=== PATIENT | male | born 1995 | race Caucasian/White ===

== ENCOUNTER 2020-05-23 10:16 | Emergency (ER) | payer BC ==
[2020-05-23] MEDS ORDERED: NA CHLORIDE 0.9% 1,000 ML ONE (11:15)
[2020-05-23 11:31] LABS: Urine Blood NEGATIVE (NEG); Urine Glucose NEGATIVE (NEG); Urine Protein NEGATIVE (NEG); Urine Specific Gravity >1.030 (1.005-1.030)
[2020-05-23 11:35] LABS: Absolute Lymphocytes (CBC) 1.5 K/uL (0.7-4.9); Basophils % 0.6 % (0-1.3); Hematocrit 46.8 % (39.6-49.0); Lymphocytes % 18.8 % (15.3-44.8); MPV 9.3 fL (7.6-11.3); RBC Red Blood Cell Count 5.43 M/uL (4.33-5.43)
--- NOTE | 2020-05-23 11:35 | RAD REPORT ---
EXAM DESCRIPTION: RAD - Knee Right 3 View - 05/23/2020 10:50 am CLINICAL HISTORY: PAIN COMPARISON: No comparisons FINDINGS: No fracture, dislocation or periosteal reaction.No joint effusion seen. No joint space kaveh rowing. No foreign body or other soft tissue abnormality. IMPRESSION: Negative right knee. Clinical concerns for internal derangement or occult bony injury could be further assessed with MR im aging.
[2020-05-23 11:39] LABS: BUN Blood Urea Nitrogen 13 mg/dL (7-18); Bicarbonate 29 mmol/L (21-32); Glucose Level 159 mg/dL (74-106); Potassium 4.4 mmol/L (3.5-5.1); Sodium Level 139 mmol/L (136-145)
--- NOTE | 2020-05-23 11:55 | EDPHYS ---
Physician Documentation [facility] Name: Harley Yadav Age: 24 yrs Sex: Male : 1995 Arrival Date: 05/23/2020 Time: 10:19 Bed 13 Private MD: Evaristo Peterson T ED Physician Cecilio Willis HPI: 05/23 13:45 This 24 yrs old Male presents to ER via Ambulatory with complaints of Fall kb Injury, Knee Injury. 13:45 Details of fall: The patient fell from an upright position, while walking. Onset: The kb symptoms/episode began/occurred last night. Associated injuries: The patient sustained right knee, painful injury. Severity of symptoms: At their worst the symptoms were moderate, in the emergency department the symptoms are unchanged. The patient has not experienced similar symptoms in the past. The patient has not recently seen a physician. Pt reports he was walking to the kitchen last night and passed out. States he woke up with pain to right knee. Reports he has been having lightheadedness upon standing and walking for about a week. . Historical: - Allergies: 10:45 PENICILLINS; bp - Home Meds: 10:45 Metformin Oral [Active]; losartan oral oral [Active]; atorvastatin oral oral [Active]; bp - PMHx: 10:45 Diabetes - NIDDM; Hypertension; Hyperlipidemia; Gout; bp - Immunization history:: Adult Immunizations up to date. - Social history:: Smoking status: Patient denies any tobacco usage or history of. ROS: 13:22 Constitutional: Negative for fever, chills, and weight loss, Cardiovascular: Negative kb for chest pain, palpitations, and edema, Respiratory: Negative for shortness of breath, cough, wheezing, and pleuritic chest pain, Abdomen/GI: Negative for abdominal pain, nausea, vomiting, diarrhea, and constipation, Back: Negative for injury and pain, Skin: Negative for injury, rash, and discoloration. 13:22 MS/extremity: Positive for pain, tenderness, of the right knee. 13:22 Neuro: Positive for syncope. Exam: 13:44 Constitutional: This is a well developed, well nourished patient who is awake, alert, kb and in no acute distress. Head/Face: Normocephalic, atraumatic. Chest/axilla: Normal chest wall appearance and motion. Nontender with no deformity. No lesions are appreciated. Cardiovascular: Regular rate and rhythm with a normal S1 and S2. No gallops, murmurs, or rubs. Normal PMI, no JVD. No pulse deficits. Respiratory: Lungs have equal breath sounds bilaterally, clear to auscultation and percussion. No rales, rhonchi or wheezes noted. No increased work of breathing, no retractions or nasal flaring. Abdomen/GI: Soft, non-tender, with normal bowel sounds. No distension or tympany. No guarding or rebound. No evidence of tenderness throughout. Skin: Warm, dry with normal turgor. Normal color with no rashes, no lesions, and no evidence of cellulitis. Neuro: Awake and alert, GCS 15, oriented to person, place, time, and situation. Cranial nerves II-XII grossly intact. Motor strength 5/5 in all extremities. Sensory grossly intact. Cerebellar exam normal. Normal gait. 13:44 Musculoskeletal/extremity: Extremities: grossly normal except: noted in the right knee: decreased ROM, pain, tenderness, ROM: limited active range of motion due to pain, in the right knee, Circulation is intact in all extremities. Sensation intact. Weight bearing: able to fully bear weight. Vital Signs: 10:46 BP 108 / 74; Pulse 97; Resp 16; Temp 97.8; Pulse Ox 100% ; bp 10:47 BP 108 / 74 Supine; Pulse 94; bp 10:49 BP 115 / 83 Sitting; Pulse 105; bp 10:51 BP 103 / 40 Standing; Pulse 141; bp 11:36 BP 110 / 66; Pulse 87; Resp 16; Pulse Ox 97% ; bp 12:32 BP 100 / 74; Pulse 89; Resp 16; Pulse Ox 100% ; bp MDM: 10:20 Patient medically screened. kb 10:30 Data reviewed: vital signs, nurses notes. Data interpreted: Pulse oximetry: on room air kb is 99 %. Interpretation: normal. 11:54 Counseling: I had a detailed discussion with the patient and/or guardian regarding: the kb historical points, exam findings, and any diagnostic results supporting the discharge/admit diagnosis, lab results, radiology results, the need for outpatient follow up, a family practitioner, to return to the emergency department if symptoms worsen or persist or if there are any questions or concerns that arise at home. 05/23 10:55 Order name: CBC with Diff; Complete Time: 11:36 kb 05/23 10:55 Order name: Basic Metabolic Panel; Complete Time: 11:40 kb 05/23 10:29 Order name: Knee Right 3 View XRAY; Complete Time: 11:40 kb 05/23 10:29 Order name: Orthostatics; Complete Time: 11:06 kb 05/23 11:07 Order name: Urine Dipstick--Ancillary (enter results); Complete Time: 11:36 bd 05/23 10:29 Order name: Urine Dipstick-Ancillary (obtain specimen); Complete Time: 11:06 kb 05/23 10:55 Order name: IV Start; Complete Time: 11:15 kb 05/23 11:55 Order name: Krish Wrap; Complete Time: 12:32 kb Administered Medications: 11:10 Drug: NS 0.9% 1000 ml Route: IV; Rate: 1000 ml; Site: right antecubital; bp 12:35 Follow up: IV Status: Completed infusion; IV Intake: 1000ml bp Disposition: 17:32 Co-signature as Attending Physician, Cecilio Willis MD I agree with the assessment and kdr plan of care. Disposition: 05/23/20 11:55 Discharged to Home. Impression: Pain in right knee, Syncope and collapse, Volume depletion. - Condition is Stable. - Discharge Instructions: Syncope, Liyn-do-Pupk, Dehydration, Adult, [id number], Knee Pain, [id number]. - Medication Reconciliation Form, Thank You Letter, Antibiotic Education, Prescription Opioid Use form. - Follow up: Emergency Department; When: As needed; Reason: Worsening of condition. Follow up: Private Physician; When: 2 - 3 days; Reason: Recheck today's complaints, Continuance of care, Re-evaluation by your physician. Signatures: Dispatcher [employer] EDHillary Baig, APPAREL MANAGER-C APPAREL MANAGER-Cecilio Simmons MD MD kdr Peltier, Brian, RN RN bp Corrections: (The following items were deleted from the chart) 12:36 11:55 05/23/2020 11:55 Discharged to Home. Impression: Pain in right knee; Syncope and bp collapse; Volume depletion. Condition is Stable. Forms are Medication Reconciliation Form, Thank You Letter, Antibiotic Education, Prescription Opioid Use. Follow up: Emergency Department; When: As needed; Reason: Worsening of condition. Follow up: Private Physician; When: 2 - 3 days; Reason: Recheck today's complaints, Continuance of care, Re-evaluation by your physician. kb
--- NOTE | 2020-05-23 11:55 | ER ---
Nurse's Notes [facility] Name: Harley Yadav Age: 24 yrs Sex: Male : 1995 Arrival Date: 05/23/2020 Time: 10:19 Bed 13 Private MD: Evaristo Peterson T Diagnosis: Pain in right knee;Syncope and collapse;Volume depletion Presentation: 05/23 10:29 Chief complaint:. Coronavirus screen: At this time, the client does not indicate any bp symptoms associated with coronavirus-19. Ebola Screen: No symptoms or risks identified at this time. Risk Assessment: Do you want to hurt yourself or someone else? Patient reports no desire to harm self or others. 10:29 Acuity: IRVING 3 bp 10:29 Method Of Arrival: Wheelchair bp 10:29 Method Of Arrival: Ambulatory bp 10:30 Initial Sepsis Screen: Does the patient meet any 2 criteria? No. Patient's initial bp sepsis screen is negative. Does the patient have a suspected source of infection? No. Patient's initial sepsis screen is negative. Onset of symptoms is unknown. Triage Assessment: 10:30 General: Appears in no apparent distress. uncomfortable, Behavior is cooperative, bp appropriate for age, anxious. Pain: Complains of pain in right knee. EENT: No deficits noted. Neuro: Reports a syncopal episode. Cardiovascular: No deficits noted. Respiratory: No deficits noted. GI: No signs and/or symptoms were reported involving the gastrointestinal system. : No signs and/or symptoms were reported regarding the genitourinary system. Derm: No deficits noted. Musculoskeletal: Reports pain in right knee. Historical: - Allergies: 10:45 PENICILLINS; bp - Home Meds: 10:45 Metformin Oral [Active]; losartan oral oral [Active]; atorvastatin oral oral [Active]; bp - PMHx: 10:45 Diabetes - NIDDM; Hypertension; Hyperlipidemia; Gout; bp - Immunization history:: Adult Immunizations up to date. - Social history:: Smoking status: Patient denies any tobacco usage or history of. Screenin:30 Abuse screen: Denies threats or abuse. Denies injuries from another. Nutritional bp screening: No deficits noted. Tuberculosis screening: No symptoms or risk factors identified. Fall Risk None identified. Assessment: 10:30 General: SEE TRIAGE NOTE. bp 11:09 Reassessment: PT ORTHOSTATIC POSITIVE. PROVIDER NOTIFIED. bp 11:57 Reassessment: No changes from previously documented assessment. Patient and/or family bp updated on plan of care and expected duration. Pain level reassessed. Patient is alert, oriented x 3, equal unlabored respirations, skin warm/dry/pink. PROVIDER AT B/S FOR RE-EVAL. IVF INFUSING. 12:32 Reassessment: PT D/C HOME AMBULATORY, DX WITH DEHYDRATION. bp Vital Signs: 10:46 BP 108 / 74; Pulse 97; Resp 16; Temp 97.8; Pulse Ox 100% ; bp 10:47 BP 108 / 74 Supine; Pulse 94; bp 10:49 BP 115 / 83 Sitting; Pulse 105; bp 10:51 BP 103 / 40 Standing; Pulse 141; bp 11:36 BP 110 / 66; Pulse 87; Resp 16; Pulse Ox 97% ; bp 12:32 BP 100 / 74; Pulse 89; Resp 16; Pulse Ox 100% ; bp ED Course: 10:19 Patient arrived in ED. ag5 10:19 Hillary Avendaño [facility]-C [facility] kb 10:19 Cecilio Willis MD is Attending Physician. kb 10:19 Evaristo Peterson MD is Private Physician. ag5 10:22 Jose Daniel Green, DEVYN is Primary Nurse. bp 10:30 Arm band placed on. bp 10:30 Patient has correct armband on for positive identification. Bed in low position. Call bp light in reach. Side rails up X2. 10:34 Triage completed. bp 10:49 Knee Right 3 View XRAY In Process Unspecified. EDMS 11:15 Inserted saline lock: 20 gauge in right antecubital area, using aseptic technique. bp Blood collected. 11:24 Basic Metabolic Panel Sent. mh5 11:24 CBC with Diff Sent. mh5 12:34 No provider procedures requiring assistance completed. IV discontinued, intact, bp bleeding controlled, No redness/swelling at site. Pressure dressing applied. Administered Medications: 11:10 Drug: NS 0.9% 1000 ml Route: IV; Rate: 1000 ml; Site: right antecubital; bp 12:35 Follow up: IV Status: Completed infusion; IV Intake: 1000ml bp Intake: 12:35 IV: 1000ml; Total: 1000ml. bp Outcome: 11:55 Discharge ordered by . kb 12:34 Discharged to home ambulatory. bp 12:34 Condition: stable 12:34 Discharge instructions given to patient, Instructed on discharge instructions, follow up and referral plans. Demonstrated understanding of instructions, follow-up care. 12:36 Patient left the ED. bp Signatures: Dispatcher [employer] EDMS Hillary Avendaño FNP-C FNP-Ckb Martinez, Maria 5 Jose Daniel Green RN RN Greg Saenz 5
[2020-05-23 12:44] VITALS: TEMP 97.8
[2020-05-23 12:50] VITALS: BP 100/74; O2SAT 100
--- OUTSIDE RECORDS SUMMARY | 2020-05-23 15:13 | XMS REPORT | Continuity of Care Document ---
:1995 Author Organization [employer] Care Team Providers Name Role Phone [employer] Unavailable Un available Problems Problem Status Onset Classification Date Comments Sourc e Date Reported Epigastric pain 11/10/19 11/12/2019 [facility] 20 IPCS TEST Active 12/13/19 [facility] [place] MANDIBLE FX Active 03/22/[address] MANDIBLE Active 02/20/20 [facility] FRACTURE, ICD 12 Medica l 9- 802.21 Center FRACTUREE Active 02/20/[address] MALUNION OF Active 02/16/20 [facility] MANDIBLE [address] [place] [address] MANDIBLE Active 02/16/20 [facility] FRACTURE [address] [place] [address] Diabetes Active 04/13/19 Problem 02/19/2020 HGB A1C 9.8 monito red by PCP [facility] mellitus 10 does not check at [facility] (disorder) Hypertensive Active 04/13/19 Problem 02/19/2020 monitored by NURSING HOME I disorder, 10 pcp, denies systemic further arterial cardiac HX (disorder) Fracture Of The Active 03/03/2012 [facility] Lower Jaw (Closed) Malunion Of Active 03/03/2012 [facility] Fracture Of The Mandible / Lower Jaw Pain Active Problem 05/21/2012 [facility], OPID Kathryn nn Diabetic - Active Problem 03/05/2019 [facility] 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 FX [place] PROC [place] [facility] Medications Medication Details Route Status Patient Ordering Order Source Instructions Provider Date Lovenox 40 mg = 0.4 Inactive mL, 2019 Injection, Subcutaneous , Daily, first dose 02/17/20 13:00:00 [employer] Protonix IV 40 mg = 1 Inactive Each, 2019 Powder-Inj, IV Push, Daily, first dose 02/17/20 9:00:00 [employer] atorvastatin 40 mg = 1 Inactive tabs, Tab, 2020 Oral, Daily, first dose 02/17/20 9:00:00 [employer], Patient's Own Meds candesartan 32 mg, Tab, Inactive Oral, Daily, 2019 first dose 02/17/20 9:00:00 [employer], Patient's Own Meds, SBP Hold Parameter: less than 110 mmHg Metformin 850 mg = 1 Inactive hydrochloride tabs, Tab, 2020 850 MG Oral Oral, BID, Tablet first dose 02/17/20 9:00:00 [employer], Patient's Own Meds carvedilol 25 mg, Tab, No Longer Oral, BID, Active 2019 first dose 02/16/20 21:00:00 [employer], Patient's Own Meds, SBP Hold Parameter: less than 110 mmHg, HR Hold Parameter: less than 55 bpm montelukast 10 mg = 1 No Longer tabs, Tab, Active 2019 Oral, qHS, first dose 02/16/20 21:00:00 [employer] Clindamycin 600 mg, No Longer Soln-IV, IV Active 2019 Piggyback, q8hr, infuse over 30 minutes, order duration: 3 doses, first dose 02/16/20 18:00:00 [employer], stop date 02/17/20 17:59:00 [employer], Prophylaxis insulin regular 3 - 15 No Longer sliding scale units, Active 2019 MEDIUM Injection, Subcutaneous , QIDACHS, first dose 02/16/20 16:30:00 [employer] scopolamine 1.5 1 patches, No Longer I mg transdermal Film-ER, TD, Active 2019 film, extended q72hr, first release dose 02/16/20 15:00:00 [employer] NS 1,000 mL 1,000 mL, No Longer 11/05/ [facility] IV, 100 Active 2020 mL/hr, start date 02/16/20 11:46:00 [employer], 2.82, m2 Saline Lock 10 mL, Soln, No Longer [facility] Flush IV Push, Active 2020 q8hr, first dose 02/16/20 11:00:00 [employer] 72 HR 1 patches, Inactive I Scopolamine Film-ER, TD, 2019 0.0139 MG/HR q72hr, first Transdermal dose Patch 02/16/20 11:00:00 [employer] Morphine 4 mg = 2 mL, Inactive [facility] Injection, 2019 IV Push, q4hr PRN for pain severe (7-10), first dose 02/16/20 10:21:00 [employer] Zofran 4 mg = 2 mL, Inactive [facility] Injection, 2019 IV Push, q6hr PRN for nausea/vomit ing, first dose 02/16/20 10:21:00 [employer] Acetaminophen Notes: Max Inactive [facility] 325 MG / 4gm 2019 Hydrocodone acetaminophe Bitartrate 5 MG n in 24 Oral Tablet hours [[place] 5/325] NS 1,000 mL 1,000 mL, Inactive [facility] IV, 100 2020 mL/hr, start date 02/16/20 10:21:00 [employer], 2.82, m2 Saline Lock 10 mL, Soln, No Longer [facility] Flush IV Push, Active 2019 q8hr PRN for flush, first dose 02/16/20 10:19:00 [employer] Morphine 2 mg = 1 mL, Inactive [facility] Injection, 2020 IV Push, q3hr PRN for pain, first dose 02/16/20 10:19:00 [employer] Flu Shot PF 0.5 mL, No Longer [facility] Injection, Active 2020 IM, Once PRN for other (see comment), first dose 02/16/20 10:19:00 [employer] Zofran 4 mg = 2 mL, No Longer [facility] Injection, Active 2020 IV Push, q6hr PRN for nausea/vomit ing, first dose 02/16/20 10:19:00 [employer] Phenergan 25 mg = 1 No Longer [facility] mL, Active 2020 Injection, IM, q6hr PRN for nausea/vomit ing, first dose 02/16/20 10:19:00 [employer] Acetaminophen Notes: Max No Longer 02/15/ [facility] 4gm Active 2019 acetaminophe n in 24 hours Benadryl 25 mg = 0.5 No Longer [facility] mL, Active 2019 Injection, IV Push, q6hr PRN for itching, first dose 02/16/20 10:19:00 [employer] Acetaminophen Notes: Max No Longer [facility] 21.7 MG/ML / 4gm Active 2019 Hydrocodone acetaminophe Bitartrate 0.5 n in 24 MG/ML Oral hours Solution Normal Saline 1,000 mL, Inactive 02/15/ [facility] 1,000 mL IV, 100 2020 mL/hr, start date 02/16/20 10:19:00 [employer], 2.82, m2 Saline Lock 10 mL, Soln, Inactive 02/15/ [facility] Flush IV Push, As 2020 Indicated PRN for flush, first dose 02/16/20 10:18:00 [employer] Morphine 2 mg = 1 mL, Inactive [facility] Injection, 2019 IV Push, q5min PRN for pain, first dose 02/16/20 10:18:00 [employer] Dilaudid 0.5 mg = 0.5 Inactive 02/15/ [facility] mL, 2019 Injection, IV Push, q10min PRN for pain severe (7-10), first dose 02/16/20 10:18:00 [employer] Demerol HCl 12.5 mg = Inactive 02/15/ [facility] 0.5 mL, 2020 Injection, IV Push, Once PRN for shivers, first dose 02/16/20 10:18:00 [employer] Albuterol 0.83 2.5 mg = 3 Inactive 02/15/ [facility] MG/ML Inhalant mL, Soln, 2020 Solution NEB, Once PRN for wheezing, first dose 02/16/20 10:18:00 [employer] Ondansetron 4 mg = 2 mL, Inactive 02/15/ [facility] Injection, 2020 IV Push, q15min PRN for nausea, order duration: 2 doses, first dose 02/16/20 10:18:00 [employer], stop date Limited # of times Promethazine 12.5 mg = Inactive 02/15/ [facility] 0.5 mL, 2020 Injection, IM, Once PRN for vomiting, first dose 02/16/20 10:18:00 [employer] Labetalol 5 mg = 1 mL, Inactive 02/15/ [facility] Injection2019 IV Push, As Indicated PRN for hypertension , first dose 02/16/20 10:18:00 [employer], SBP Hold Parameter: less than 110 mmHg, HR Hold Parameter: less than 60 bpm Hydralazine 5 mg = 0.25 Inactive 02/15/ [facility] mL2019 Injection, IV Push, As Indicated PRN for hypertension , first dose 02/16/20 10:18:00 [employer], SBP Hold Parameter: less than 110 mmHg glycopyrronium 0.2 mg = 1 Inactive 02/15/ [facility] mL2019 Injection, IV Push, Once PRN for bradycardia, first dose 02/16/20 10:18:00 [employer] Diphenhydramine 25 mg = 0.5 Inactive 02/15/ [facility] I mL2019 Injection, IV Push, Once PRN for itching, first dose 02/16/20 10:18:00 [employer] Misc Medication 1,000 mL, Inactive [facility] Soln-IV, IV, 2019 Once, first dose 02/16/20 10:10:00 [employer], stop date 02/16/20 10:10:00 [employer] ketorolac 30 mg = 1 Inactive 02/15/ [facility] mL2019 Injection, IV, Once, first dose 02/16/20 9:52:00 [employer], stop date 02/16/20 9:52:00 [employer] ondansetron 8 mg = 4 mL, Inactive [facility] Injection, 2019 IV, Once, first dose 02/16/20 9:49:00 [employer], stop date 02/16/20 9:49:00 [employer] HYDROmorphone 1 mg = 0.5 Inactive 02/15/ [facility] mL, 2019 Injection, IV, Once, first dose 02/16/20 9:49:00 [employer], stop date 02/16/20 9:49:00 [employer] sugammadex 400 mg = 4 Inactive 02/15/ [facility] mL2019 Injection, IV, Once, first dose 02/16/20 9:45:00 [employer], stop date 02/16/20 9:45:00 [employer] rocuronium 20 mg = 2 Inactive 02/15/ [facility] mL, 2019 Injection, IV, Once, first dose 02/16/20 9:27:00 [employer], stop date 02/16/20 9:27:00 [employer] fentaNYL 100 mcg = 2 Inactive 02/15/ [facility] mL, 2019 Injection, IV, Once, first dose 02/16/20 9:06:00 [employer], stop date 02/16/20 9:06:00 [employer] rocuronium 50 mg = 5 Inactive 02/15/ [facility] mL, 2019 Injection, IV, Once, first dose 02/16/20 9:06:00 [employer], stop date 02/16/20 9:06:00 [employer] Misc Medication 1,000 mL, Inactive [facility] Soln-IV, IV, 2019 Once, first dose 02/16/20 9:06:00 [employer], stop date 02/16/20 9:06:00 [employer] ePHEDrine 10 mg = 0.2 Inactive [facility] mL2019 Injection, IV, Once, first dose 02/16/20 9:00:00 [employer], stop date 02/16/20 9:00:00 [employer] ePHEDrine 10 mg = 0.2 Inactive 02/15/ [facility] mL2019 Injection, IV, Once, first dose 02/16/20 8:54:00 [employer], stop date 02/16/20 8:54:00 [employer] clindamycin 900 mg, Inactive [facility] Soln-IV, IV, 2019 Once, first dose 02/16/20 8:36:00 [employer], stop date 02/16/20 8:36:00 [employer] propofol 200 mg = 20 Inactive 02/15/ [facility] mL2019 Emulsion, IV, Once, first dose 02/16/20 8:25:00 [employer], stop date 02/16/20 8:25:00 [employer] lidocaine 100 mg = 5 Inactive 02/15/ [facility] mL, 2019 Injection, IV, Once, first dose 02/16/20 8:25:00 [employer], stop date 02/16/20 8:25:00 [employer] rocuronium 10 mg = 1 Inactive 02/15/ [facility] mL, 2019 Injection, IV, Once, first dose 02/16/20 8:25:00 [employer], stop date 02/16/20 8:25:00 [employer] succinylcholine 180 mg = 9 Inactive 11/05/ [facility] mL, 2019 Injection, IV, Once, first dose 02/16/20 8:25:00 [employer], stop date 02/16/20 8:25:00 [employer] fentaNYL 150 mcg = 3 Inactive [facility] mL, 2019 Injection, IV, Once, first dose 02/16/20 8:24:00 [employer], stop date 02/16/20 8:24:00 [employer] midazolam 2 mg = 2 mL, Inactive [facility] Injection, 2019 IV, Once, first dose 02/16/20 8:16:00 [employer], stop date 02/16/20 8:16:00 [employer] HYDROmorphone 1 mg = 0.5 Inactive [facility] mL, 2019 Injection, IV, Once, first dose 02/16/20 8:16:00 [employer], stop date 02/16/20 8:16:00 [employer] Clindamycin 900 mg, Inactive I Soln-IV, IV 2019 Piggyback, Once, infuse over 30 minutes, first dose 02/16/20 8:00:00 [employer], stop date 02/16/20 8:00:00 [employer], Prophylaxis LR 1,000 mL 1,000 mL, Inactive [facility] IV, 30 2020 mL/hr, start date 02/16/20 7:41:00 [employer], 2.82, m2 Lidocaine 2% 0.2 0.2 mL, Inactive [facility] mL IV Start Injection, 2019 [[facility]] Subcutaneous , Once PRN for other (see comment), first dose 02/16/20 7:41:00 [employer] meloxicam 15 MG 15 mg = 1 Active [facility] Oral Tablet tabs, Oral, 2019 Daily, # 30 tabs, 0 Refill(s), Gout montelukast 10 10 mg = 1 Active 02/07/ [facility] mg oral tablet tabs, Oral, 2019 qPM, # 30 tabs, 0 Refill(s), allergies Metformin 850 mg = 1 Active [facility] hydrochloride tabs, Oral, 2019 850 MG Oral BID, Tablet external rx states 1 tab bid, 0 Refill(s), DM Misc Medication 500 mL, Inactive [facility] Soln-IV, IV, 2019 Once, first dose 11/10/19 8:10:00 CDT, stop 11/10/19 8:10:00 CDT propofol 100 mg = 10 Inactive 11/09/ [facility] mL, 2019 Emulsion, IV, Once, first dose 11/10/19 7:29:00 CDT, stop date 11/10/19 7:29:00 CDT LR 1,000 mL 1,000 mL, Inactive 11/09/ [facility] IV, 75 2020 mL/hr, start date 11/10/19 7:27:00 CDT, 2.83, m2 Saline Lock 10 mL, Soln, Inactive 11/09/ [facility] Flush IV Push, As 2020 Indicated PRN for flush, first dose 11/10/19 7:27:00 CDT propofol 100 mg = 10 Inactive 11/09/ [facility] mL, 2019 Emulsion, IV, Once, first dose 11/10/19 7:27:00 CDT, stop date 11/10/19 7:27:00 CDT propofol 100 mg = 10 Inactive 11/09/ [facility] mL, 2019 Emulsion, IV, Once, first dose 11/10/19 7:24:00 CDT, stop date 11/10/19 7:24:00 CDT lidocaine 100 mg = 5 Inactive 11/09/ [facility] mL, 2019 Injection, IV, Once, first dose 11/10/19 7:21:00 CDT, stop date 11/10/19 7:21:00 CDT propofol 200 mg = 20 Inactive 11/09/ [facility] 2019 Emulsion, IV, Once, first dose 11/10/19 7:21:00 CDT, stop date 11/10/19 7:21:00 CDT midazolam 2 mg = 2 mL, Inactive 11/09/ [facility] Injection, 2019 IV, Once, first dose 11/10/19 7:13:00 CDT, stop date 11/10/19 7:13:00 CDT glycopyrrolate 0.2 mg = 1 Inactive 11/09/ [facility] mL, 2019 Injection, IV, Once, first dose 11/10/19 7:13:00 CDT, stop date 11/10/19 7:13:00 CDT LR 1,000 mL 1,000 mL, Inactive 11/09/ [facility] IV, 30 2020 mL/hr, start date 11/10/19 6:07:00 CDT, 2.83, m2 Lidocaine 2% 0.2 0.2 mL, Inactive 11/09/ [facility] mL IV Start Injection, 2019 [[place]] Subcutaneous , Once PRN for other (see comment), first dose 11/10/19 6:07:00 CDT carvedilol 25 MG 25 mg = 1 Active 11/07/ [facility] Oral Tablet tabs, Oral, 2019 BID, external says bid, 0 Refill(s), htn candesartan 32 32 mg = 1 Active 11/07/ [facility] mg oral tablet tabs, Oral, 2019 Daily, 0 Refill(s), htn atorvastatin 40 40 mg = 1 Active 11/07/ [facility] mg oral tablet tabs, Oral, 2019 Daily, 0 Refill(s), cholesterol 24 HR Metformin 1,500 mg = 2 [id number] 11/07/ [facility] hydrochloride tabs, Oral, 2019 750 MG Extended Daily, 0 Release Tablet Refill(s), dm Synera 1 appl, TOP No Longer [facility] Route: TOP, Active 2012 [facility] Weight 153, kg, ONCE, Start date: 05/19/12 10:14:00, Stop date: 05/19/12 10:14:00 Synera 1 appl, TOP No Longer [facility] Route: TOP, Active 2012 [facility] Weight 153, kg, ONCE, Start date: 05/19/12 10:13:00, Stop date: 05/19/12 10:13:00 diphenhydrAMINE 12.5 mg, IVP No Longer [place] 0.25 mL, Active 2012 Medical Route: IVP, Center Drug form: INJ, PRN, Dosing Weight 153, kg, PRN Itching, Start date: 05/19/12 8:42:00, Duration: 30 day, Stop date: 06/18/12 8:41:00 promethazine 6.25 mg, IVPB No Longer [place] [place] 0.25 mL, Active 2012 Medical Route: IVPB, Center Drug form: INJ, ONCE, Dosing Weight 153, kg, PRN Nausea & Vomiting, Start date: 05/19/12 8:42:00 ondansetron 4 mg, 2 mL, IVP No Longer [facility] [place] Route: IVP, Active 2012 Medical Drug form: [place] INJ, ONCE, Dosing Weight 153, kg, PRN Nausea & Vomiting, Start date: 05/19/12 8:42:00 flumazenil 0.2 mg, 2 IVP No Longer [facility] [place] mL, Route: Active 2012 [facility] IVP, Drug Center form: INJ, PRN, Dosing Weight 153, kg, PRN Benzodiazepi ne Reversal, Initial dose, Start date: 05/19/12 8:42:00, Duration: 30 day, Stop date: 06/18/12 8:41:00 meperidine 12.5 mg, IVP No Longer [place] [place] 0.25 mL, Active 2012 Medical Route: IVP, [place] Drug form: INJ, Q30Min, Dosing Weight 153, kg, PRN Other -See Comment, For shivering, Start date: 05/19/12 8:42:00, Duration: 2 doses or times, Stop date: 05/20/12 0:00:00 naloxone 0.04 mg, 0.1 IVP No Longer [place] mL, Route: Active 2012 [facility] IVP, Drug Center form: INJ, Q2MIN, Dosing Weight 153, kg, PRN Narcotic Reversal, Start date: 05/19/12 8:42:00, Duration: 8 doses or times, Stop date: 05/20/12 0:00:00 acetaminophen-hy 15 mL, PO No Longer [place] drocodone 325 Route: PO, Active 2012 Medical mg-10 mg/15 mL Drug Form: [place] oral solution SOLN, Dosing Weight 153, kg, Q4H, PRN Pain Score 4-6, Start date: 05/19/12 8:42:00, Duration: 30 day, Stop date: 06/18/12 8:41:00 hydromorphone 0.5 mg, 0.25 IVP No Longer [facility] [place] mL, Route: Active 2012 Medical IVP, Drug Center form: INJ, Q5Min, Dosing Weight 153, kg, PRN Pain Score 4-6, Start date: 05/19/12 8:42:00, Duration: 5 doses or times, Stop date: 05/20/12 0:00:00 Ancef 2 gm, Route: IVP No Longer [place] IVP, ONCE, Active 2012 [facility] Dosing Center Weight 153, kg, Start date: 05/19/12 7:38:00, Stop date: 05/19/12 7:38:00 metFORmin PO, QAM, PO Active [place] Substitution 2012 [facility] Versed 20 mg, PO No Longer [facility] Route: PO, Active 2011 Medical ONCE, Dosing Center Weight 146.5, kg, Start date: 03/10/12 14:42:00, Stop date: 03/10/12 14:42:00, Patient's Own Meds: Vicoprofen 7.5 1 tab, PO, PO Active [place] Rosal[place] as mg-200 mg oral Q4H, PRN, 60 2011 Medi [place] tablet tab, for Center pain, Substitution Allowed, Maintenance, TAB clindamycin 300 300 mg, 1 PO Active [place]al[place] as mg oral capsule cap, PO, 2011 Medical Q6H, 56 cap, Center Substitution Allowed, CAP Peridex 0.12% 0.018 gm, 15 PO Active [place] topical liquid ml, PO, QID, 2011 Medi [place] 480 ml, Center Substitution Allowed, LIQ Cleocin HCl 600 mg, 60 IVPB No Longer [place] mL, Route: Active 2011 Medical IVPB, Drug Center form: INJ, [id number], Start date: 02/18/12 20:00:00, Duration: 30 day, Stop date: 03/19/12 8:00:00 Peridex 0.12% 15 ml, S&SPIT No Longer [facility] topical liquid Route: Active 2011 Medical S&SPIT, QID, Center Drug form: LIQ, Start date: 02/18/12 17:00:00, Duration: 30 day, Stop date: 03/19/12 10:00:00 bacitracin 1 appl, TOP No Longer [facility] topical Route: TOP, Active 2011 Medical ONCE, Drug Center form: OINT, Start date: 02/18/12 16:20:00, Stop date: 02/18/12 16:20:00 [place] 325 mg-10 15 mL, PO No Longer [place] mg / 15 mL oral Route: PO, Active 2011 Medic al solution Drug Form: [place] SOLN, Dosing Weight 149.6, kg, ONCE, PRN For Pain, Start date: 02/18/12 15:00:00 clindamycin 600 mg, 4 IVPB No Longer [place] mL, Route: Active 2011 Medical IVPB, Drug Center form: INJ, [id number], Dosing Weight 149.6, kg, Start date: 02/18/12 15:00:00, Duration: 30 day, Stop date: 03/19/12 7:00:00 morphine Sulfate 2 mg, Route: [facility] [place] [facility], [facility]CE, Active 2011 Medical Dosing Center Weight 149.6, kg, Start date: 02/18/12 15:00:00, Stop date: 02/18/12 15:00:00 morphine Sulfate 2 mg, 1 mL, IVP No Longer Snowden [facility] Route: IVP, Active 2011 Medical Drug form: [place] INJ, Q2H, Dosing Weight 149.6, kg, PRN Breakthrough Pain, Start date: 02/18/12 14:36:00, Duration: 30 day, Stop date: 03/19/12 14:35:00 ondansetron 4 mg, 2 mL, IVP No Longer [place] Route: IVP, Active 2011 Medical Drug form: [place] INJ, Q6H, Dosing Weight 149.6, kg, PRN Nausea & Vomiting, Start date: 02/18/12 14:24:00, Duration: 30 day, Stop date: 03/19/12 14:23:00 [place] 325 mg-10 15 mL, PO No Longer [place] Rosalio as mg / 15 mL oral Route: PO, Active 2011 Medic al solution Drug Form: [place] SOLN, Dosing Weight 149.6, kg, Q4H, PRN For Pain, Start date: 02/18/12 14:23:00, Stop date: 03/19/12 14:22:00 Synera 1 appl, TOP No Longer [place] Route: TOP, Active 2011 Medical [facility] Center Weight 149.6, kg, ONCE, Start date: 02/18/12 10:44:00, Stop date: 02/18/12 10:44:00 No Active No Active Active [place] Medications Medications Physicia ns Allergies, Adverse Reactions, Alerts Substance Category Reaction Severity Reaction Status Date Comments S ource type Reported No Known drug drug Active [place] Drug allergy allergy Physicia ns Allergies Not Known [facility] Physicia ns No Known Assertion Drug [facility] R Medication allergy [place] Allergies penicillin Assertion Hives Moderate Drug Active [facility] allergy Immunizations No Data Provided for This Section Results Order Name Results Value Reference Date Interpretation Comments Vicki rce Range LABORATORY Blood 174 74 - 106 Glucose, 2019 Capillary LABORATORY Neutrophil % 77.9 45.0 - 75.0 2019 LABORATORY Monocyte % 8.0 2.0 - 12.0 2019 LABORATORY Lymphocyte % 13.4 20.0 - 40.0 2019 LABORATORY Eosinophil # 0.4 0.0 - 4.0 2019 LABORATORY Basophil % 0.3 0.0 - 1.0 2019 LABORATORY Neutrophil # 7.2 1.5 - 8.1 2019 LABORATORY Lymphocyte # 1.2 1.0 - 5.5 2019 LABORATORY Monocyte # 0.7 0.0 - 0.8 2019 LABORATORY White Blood 9.3 3.7 - 10.4 Count 2019 LABORATORY Red Blood 4.62 4.70 - 6.10 Cell Count 2019 LABORATORY Hemoglobin 14.1 14.0 - 18.0 2019 LABORATORY Hematocrit 40.9 42.0 - 54.0 2019 LABORATORY MCV 88.5 80.0 - 94.0 2019 LABORATORY MCH 30.6 27.0 - 31.0 2019 LABORATORY MCHC 34.6 32.0 - 36.0 2019 LABORATORY RDW 13.0 11.5 - 14.5 2019 LABORATORY Platelet 209 133 - 450 2019 LABORATORY MPV 9.0 7.4 - 10.4 [facility] 2019 LABORATORY NRBCs # 0.9 0.4 - 2.2 I 2019 LABORATORY Sodium Level 138 135 - 145 I 2019 LABORATORY Potassium 4.1 3.5 - 5.1 [facility] Level 2019 LABORATORY Chloride 102 95 - 109 [facility] Level 2019 LABORATORY Total Carbon 29 24 - 32 I Dioxide Level 2019 LABORATORY AGAP 11.1 10.0 - 20.0 I 2019 LABORATORY Glucose Lvl 141 70 - 99 [facility] 2019 Comment: Adult reference range values reflect the clinical guidelines
of the [place] [employer]. LABORATORY Creatinine 0.91 0.50 - 1.40 2019 LABORATORY BUN 10 7 - 22 2019 LABORATORY Protein Total 6.7 6.4 - 8.4 2019 LABORATORY Albumin Lvl 3.6 3.5 - 5.0 2019 LABORATORY Globulin 3.1 2.7 - 4.2 2019 LABORATORY Alb/Glob 1.2 0.7 - 1.6 Ratio 2019 LABORATORY Calcium Level 8.6 8.5 - 10.5 2019 LABORATORY ALT 88 0 - 65 I 2019 LABORATORY AST 40 0 - 37 2019 LABORATORY Bilirubin 0.9 0.2 - 1.3 Total 2019 LABORATORY Alk Phos 67 39 - 136 2019 LABORATORY eGFR 117 I 2019 Comment: The eGFR is calculated using the CKD-EPI formula. In most young, healthy
i ndividuals the eGFR will be >90 mL/min/1.73m2 . The eGFR declines with age. An
eGFR of 60-89 may be normal in some populations, particularly the elderly, for
whom the CKD-EPI formula has not been extensively validated. Use of the eGFR is
not recommended in the following populations:< br/>Individua ls with unstable creatinine concentration s, including
patients and those with serious co-morbid conditions.<b r/>Patients with extremes in muscle mass or diet.
The data above are obtained from the National Kidney Disease Education Program
( NKDEP) which additionally recommends that when the eGFR is used in patients<br/& gt;with extremes of body mass index for purposes of drug dosing, the eGFR should
be multiplied by the estimated BMI. LABORATORY Blood 174 74 - 106 02/16/ [facility] Glucose, 2019 Capillary LABORATORY Blood 164 74 - 106 02/15/ [facility] Glucose, 2019 Capillary LABORATORY Blood 164 74 - 106 02/15/ [facility] Glucose, 2019 Capillary LABORATORY Blood 186 74 - 106 02/15/ [facility] Glucose, 2019 Capillary LABORATORY Blood 169 74 - 106 11/09/ [facility] Glucose, 2019 Capillary HEMATOLOGY Segs-Bands # 5.3 1.5 - 8.1 03/10/ Normal [facility] 2011 [facility] HEMATOLOGY Basophils 0.4 0.0 - 1.0 03/10/ [facility] [facility] [address] [facility] HEMATOLOGY Eosinophils 4.1 0.0 - 4.0 03/10/ [place] [facility] s [address] [facility] HEMATOLOGY Lymphocytes 24.9 20.0 - 40.0 03/10/ Normal [facility] [address] HEMATOLOGY Segs 61.5 45.0 - 75.0 03/10/ Normal [facility] [address] [facility] HEMATOLOGY Lymphocytes # 2.1 1.0 - 5.5 03/10/ Normal [facility] [address] [facility] HEMATOLOGY Monocytes 9.1 2.0 - 12.0 03/10/ Normal [facility] [address] [facility] HEMATOLOGY Eosinophils # 0.4 0.0 - 0.5 03/10/ Normal [facility] [address] [facility] HEMATOLOGY Monocytes # 0.8 0.0 - 0.8 03/10/ Normal [facility] [address] [facility] HEMATOLOGY WBC 8.6 3.7 - 10.4 03/10/ Normal [facility] [address] [facility] HEMATOLOGY RBC 4.67 4.70 - 6.10 03/10/ LOW [facility] [address] [facility] HEMATOLOGY MCV 87.2 80.0 - 94.0 03/10/ Normal [facility] [address] [facility] HEMATOLOGY Hct 40.7 42.0 - 54.0 03/10/ LOW [facility] [address] [facility] HEMATOLOGY MCHC 34.3 32.0 - 36.0 03/10/ Normal [facility] [address] [facility] HEMATOLOGY MCH 29.9 27.0 - 31.0 03/10/ Normal [facility] [address] [facility] HEMATOLOGY Platelet 229 133 - 450 03/10/ Normal [facility] [address] [facility] HEMATOLOGY RDW 12.7 11.5 - 14.5 03/10/ Normal [facility] [address] [facility] HEMATOLOGY Hgb 13.9 14.0 - 18.0 03/10/ LOW [facility] [address] [facility] HEMATOLOGY MPV 9.1 7.4 - 10.4 03/10/ Normal [address] Pathology Reports No Data Provided for This Section Diagnostic Reports No Data Provided for This Section Consultation Notes No Data Provided for This Section Discharge Summaries No Data Provided for This Section History and Physicals No Data Provided for This Section Vital Signs Vital Sign Value Date Comments Source Heart Rate 77 02/17/2020 [facility] Respitory Rate 18 02/17/2020 [facility] Systolic (mm Hg) 142 02/17/2020 [facility] Diastolic (mm Hg) 89 02/17/2020 [facility] Temperature Oral (F) 36.7 Sheryl 02/17/2020 [facility] Temperature Oral (F) 36.5 Sheryl 02/17/2020 [facility] Heart Rate 81 02/17/2020 [facility] Respitory Rate 18 02/17/2020 [facility] Systolic (mm Hg) 143 02/17/2020 [facility] Diastolic (mm Hg) 90 02/17/2020 [facility] Temperature Oral (F) 36.8 Sheryl 02/17/2020 [facility] Heart Rate 68 02/17/2020 [facility] Respitory Rate 18 02/17/2020 [facility] Systolic (mm Hg) 125 02/17/2020 [facility] Diastolic (mm Hg) 64 02/17/2020 [facility] Temperature Oral (F) 36.9 Sheryl 02/16/2020 [facility] Peripheral Pulse Rate 71 02/16/2020 [facility] Height 193 cm 02/16/2020 [facility] Weight Measured 160 02/16/2020 [facility] Height 193 cm 02/08/2020 [facility] Weight Measured 160.57 02/08/2020 [facility] Peripheral Pulse Rate 80 02/08/2020 [facility] Peripheral Pulse Rate 57 11/10/2019 [facility] Respitory Rate 16 11/10/2019 [facility] Peripheral Pulse Rate 67 11/10/2019 [facility] Respitory Rate 18 11/10/2019 [facility] Systolic (mm Hg) 121 11/10/2019 [facility] Diastolic (mm Hg) 69 11/10/2019 [facility] Respitory Rate 18 11/10/2019 [facility] Systolic (mm Hg) 106 11/10/2019 [facility] Diastolic (mm Hg) 56 11/10/2019 [facility] Peripheral Pulse Rate 72 11/10/2019 [facility] Temperature Oral (F) 37 Sheryl 11/10/2019 [facility] Systolic (mm Hg) 118 11/10/2019 [facility] Diastolic (mm Hg) 82 11/10/2019 [facility] Temperature Oral (F) 36.6 Sheryl 11/10/2019 [facility] Height 193 cm 11/10/2019 [facility] Weight Measured 161.3 11/10/2019 [facility] Height 193 cm 11/08/2019 [facility] Weight Measured 161.3 11/08/2019 [facility] Respitory Rate 18 05/19/2012 [facility] Systolic (mm Hg) 139 05/19/2012 [facility] Diastolic (mm Hg) 55 05/19/2012 [facility] Respitory Rate 17 05/19/2012 [facility] Systolic (mm Hg) 139 05/19/2012 [facility] Diastolic (mm Hg) 60 05/19/2012 [facility] Diastolic (mm Hg) 55 05/19/2012 [facility] Respitory Rate 15 05/19/2012 [facility] Systolic (mm Hg) 138 05/19/2012 [facility] Heart Rate 77 05/19/2012 [facility] Weight 153.000 05/19/2012 [facility] Height 191.00 cm 05/19/2012 [facility] Respitory Rate 18 03/10/2012 [facility] Diastolic (mm Hg) 80 03/10/2012 [facility] Systolic (mm Hg) 130 03/10/2012 [facility] Respitory Rate 15 03/10/2012 [facility] Respitory Rate 15 03/10/2012 [facility] Diastolic (mm Hg) 87 03/10/2012 [facility] Systolic (mm Hg) 175 03/10/2012 [facility] Systolic (mm Hg) 172 03/10/2012 [facility] Diastolic (mm Hg) 86 03/10/2012 [facility] Weight 146.500 03/10/2012 [facility] Height 192.00 cm 03/10/2012 [facility] Heart Rate 69 03/10/2012 [facility] Heart Rate 124 02/19/2012 [facility] Systolic (mm Hg) 127 02/19/2012 [facility] Diastolic (mm Hg) 66 02/19/2012 [facility] Respitory Rate 19 02/19/2012 [facility] Center Systolic (mm Hg) 144 02/19/2012 [facility] Heart Rate 90 02/19/2012 [facility] Respitory Rate 19 02/19/2012 [facility] Diastolic (mm Hg) 69 02/19/2012 [facility] Diastolic (mm Hg) 73 02/19/2012 [facility] Temperature Oral (F) 98.2 F 02/19/2012 [facility] Heart Rate 97 02/19/2012 [facility] Systolic (mm Hg) 126 02/19/2012 [facility] Respitory Rate 19 02/19/2012 [facility] Center Weight 149.600 02/18/2012 [facility] Height 193.04 cm 02/18/2012 [facility] Encounters Location Location Encounter Encounter Reason Attending ADM [place] Stat us Source Details Type Number For Provider Date Date Visit AUDIT [id number] 02/15 Physicia ns AUDIT [id number] 02/15 Physicteressa ns [facility] Inpatient [id number] MANDIBLE ESTER 02/17 02/18 Activ e [facility] 1 FRACTURE [place] /2011 [facility] Center AUDIT [id number] 02/22 /2011 Physicia ns EST, [id number] 03/01 02/22 [place] Provider: /2011 Aisha Carlos, Status: Pen, Time: 10:00 AM AUDIT [id number] 03/01 Physicia ns AUDIT [id number] 03/02 Physicia ns [facility] DS [id number] MANDIBLE ESTER 05/19 Active [facility] 4 FX [place] /2013 [facility] Center Center [facility] [employer] [id number] Non 03/02 03/03 [facility] [place] [facility] 4 Physician /[address] [facility] Outpatient [id number] James 11/09 11/09 Active Otilia gical [place] /2019 [facility] Outpatient [id number] James 11/09 11/09 U SPI Yariel [place] [facility] Inpatient [id number] James 02/15 02/16 Active Surg ical Gan [facility] Inpatient [id number] James 02/15 02/16 [place] PI Yariel [facility] DS [id number] MALUNION ESTER Active [facility] 2 OF [facility] Center MANDIBLE Center [facility] DS [id number] MANDIBLE ESTER Active [facility] 3 FRACTURE [facility] , ICD 9- Center 802.21 Procedures Procedure Code Date Perfomer Comments Source GASTRECTOMY 02/16/20 auto-populate [facility] LAPAROSCOPIC-LONGITUDINAL 20 d from 38896 (N/A)<sup>1</sup> documented surgical case ESOPHAGOGASTRODUODENOSCOPY 11/10/19 auto-popu late [facility] W/BIOPSY 41002 20 d from (N/A)<sup>1</sup> documented surgical case Fixation of mandible [id number] 03/10/20 S MR 12 [place] Fixation of mandible [id number] 03/10/20 Taiwo maxwell [address] [place] [address] Arthroscopy of knee [id number] [facility] jaw surgery [facility] Assessment and Plan No Data Provided for This Section Plan of Care Plan of Care Date Source XRAY Mandible 4 views 03/03/2012 [facility] 02/23/2012 Routine XRAY Mandible 4 views 03/02/2012 [facility] 02/23/2012 Routine XRAY Mandible 4 views 02/23/2012 [facility] 02/23/2012 Routine Social History Social History Date Source Social History TypeResponse 02/08/2020 [facility] Smoking Status Never (less than 100 in lifetime); Forme r smokeless tobacco user, quit more than 30 days ago; Type: Oral entered on: 02/08/20 Social History TypeResponse 03/03/2019 [facility] Family History No Data Provided for This Section Advance Directives Order Name Results Value Date Source Advance Directives Advance Directives No Advance 03/03/2012 [facility] Directives available. Advance Directives Advance Directives No Advance 03/02/2012 [facility] Directives available. Advance Directives Advance Directives No Advance 02/23/2012 [facility] Directives available. Advance Directives Advance Directives No Advance 02/16/2012 [facility] Directives available. Advance Directives Advance Directives No Advance 02/16/2012 [facility] Directives available. Functional Status No Data Provided for This Section
--- OUTSIDE RECORDS SUMMARY | 2020-05-23 15:14 | XMS REPORT | Continuity of Care Document ---
:1995 Author Organization [facility] t Address [address] [place] [address] Care Team Providers Name Role Phone Wagner Barillas Attending Clinician Physician, Associated Attending Clinician Unavailable Melanie Mauricio Attending Clinician Wagner Barillas Admitting Clinician Problems Condition Condition Condition Status Onset Resolution Last Treating Co mments Source Name Details Category Date Date Treatment Clinician Date IPCS TEST Diagnosis Active 2019-03-04 Memoria 12-12 10:23:00 l IPCS 08:00: Yariel TEST 00 Active 12/12/2018 [facility] MANDIBLE Diagnosis Active 2011-042012-05-19 M emoria FX - 06:01:00 l MANDIBLE 00:00: Shimon n FX 00 Active 2 [facility] MANDIBLE Diagnosis Active 2011-042012-05-10 M emoria FRACTURE, 04-21 16:01:00 l ICD 9- MANDIBLE 00:00: Shimon n 802.21 FRACTURE, 00 ICD 9- 802.21 Active 02/20/2012 [facility] FRACTUREE Diagnosis Active 2011-042012-03-30 Memoria 04-21 13:15:00 l 00:00: Yariel FRACTUREE 00 Active 02/20/2012 [facility] MALUNION Diagnosis Active 2011-042012-03-10 M emoria OF 04-17 12:21:00 l MANDIBLE MALUNION 00:00: Herm shelley OF 00 MANDIBLE Active 02/16/2012 [facility] MANDIBLE Diagnosis Active 2011-042012-02-24 M emoria FRACTURE 1- 21:46:00 l MANDIBLE 00:00: Shimon n FRACTURE 00 Active 02/16/2012 [facility] Diabetes Problem Active 2020-02-19 Mem oria mellitus 1 05:00:39 l (disorder) Diabetes 00:00: He rmann mellitus 00 (disorder) Active 04/13/2009 Problem 02/19/2020 HGB A1C 9.8 monitored by PCPdoes not check at home [facility] Hypertensi Problem Active 2020-02-19 M emoria ve 04-13 05:00:39 l disorder, 00:00: [place] systemic Hypertensi 00 arterial ve (disorder) disorder, systemic arterial (disorder) Active 04/13/2009 Problem 02/19/2020 monitored by pcp, denies further cardiac HX [facility] Fracture Problem Active 2012-03-03 Mem oria Of The 01:23:30 l [place] Fracture Her faust (Closed) Of The [place] (Closed) Active 2 [facility] Pain Problem Active 2012-05-21 Memor ia 10:29:01 l Pain Yariel Active Problem 05/21/2012 [facility], OPID [place] Diabetic - Problem Active 2019-03-05 M emoria cooperativ 00:27:00 l e patient Diabetic Her faust (finding) - cooperativ e patient (finding) Active Problem 03/05/2019 [facility] Pain Problem Active 2019-03-05 Memor ia (finding) 00:27:00 l Pain [place] (finding) Active Problem 03/05/2019 [facility] Diabetic - Problem Active 2012-05-21 emoria cooperativ 10:29:01 l e patient Diabetic Her faust - cooperativ e patient Active Problem 05/21/2012 [facility] Cholestero Problem Active 2020-02-19 M emoria l 05:00:39 l (substance Shimon n ) Cholestero l (substance ) Active Problem 02/19/2020 [facility] Indigestio Problem Active 2020-02-19 M emoria n 05:00:39 l (finding) Yariel Indigestio n (finding) Active Problem 02/19/2020 [facility] Gout Problem Active 2020-02-19 Memor ia (disorder) 05:00:39 l Gout Yariel (disorder) Active Problem 02/19/2020 [facility] Morbid Problem Active 2020-02-19 Memor ia obesity 05:00:39 l (disorder) Morbid Herm shelley obesity (disorder) Active Problem 02/19/2020 [facility] Seasonal Problem Active 2020-02-19 Mem oria allergic 05:00:39 l rhinitis Seasonal Herm shelley (disorder) allergic rhinitis (disorder) Active Problem 02/19/2020 [facility] MALUNION Diagnosis Active 2012-05-19 M emoria OF 06:01:00 l FRACTURE MALUNION Herm shelley OF FRACTURE Active [facility] FX CONDYL Diagnosis Active 2012-05-10 Memoria PROC 16:01:00 l MANDIB-CL FX [place] CONDYL PROC MANDIB-CL Active [facility] History of Past Illness Condition Condition Condition Status Onset Resolution Last Treating Co mments Source Name Details Category Date Date Treatment Clinician Date Epigastric Problem 2019-11-12 2019-11-12 Memoria pain 7-30 04:01:27 04:01:27 l 17:00: [place] Epigastric 00 pain 11/10/2019 11/12/2019 [facility] Allergies, Adverse Reactions, Alerts Allergy Allergy Status Severity Reaction(s) Onset Inactive Treating Comm ents Source Name Type Date Date Clinician No Known No Known Active Memori a Drug Drug l Allergie Allergie Shimon n s s Not Not Active Memoria Known Known l [place] No Known No Known Active Memori a Medicati Medicati l on on [place] Allergie Allergie s s penicill penicill Active Moderate Yovani tamica in in l [place] Social History Smoking Status Start Date Stop Date Source Social History [facility] Medications Ordered Filled Start Stop Current Ordering Indication Dosage Frequency Signature Comments Components Source Medication Medication Date Date Medication? Clinician (SIG) Name Name Lovenox 2019-04 No 40 mg = Memoria -06 0.4 mL, l 19:00: Injection, [place] 00 Subcutaneo us, Daily, first dose 02/17/20 13:00:00 PROTECTIVE OFFICER Protonix IV 2019-04 No 40 mg = 1 M emoria 1-06 Each, l 15:00: Powder-Inj [place] 00 , IV Push, Daily, first dose 02/17/20 9:00:00 PROTECTIVE OFFICER atorvastati 2019-04 No 40 mg = 1 M emoria n 1-06 tabs, Tab, l 15:00: Oral, [place] 00 Daily, first dose 02/17/20 9:00:00 PROTECTIVE OFFICER, Patient's Own Meds candesartan 2019-04 No 32 mg, Yovani tamica 1-06 Tab, Oral, l 15:00: Daily, [place] first dose 02/17/20 9:00:00 PROTECTIVE OFFICER, Patient's Own Meds, SBP Hold Parameter: less than 110 mmHg Metformin 2019-04 No 850 mg = 1 Me moria hydrochlori -06 tabs, Tab, l de 850 MG 15:00: Oral, BID, He rmann Oral Tablet 00 first dose 02/17/20 9:00:00 PROTECTIVE OFFICER, Patient's Own Meds carvedilol 2019-04 No 25 mg, Memor ia 1-06 Tab, Oral, l 03:00: BID, first dose 02/16/20 21:00:00 PROTECTIVE OFFICER, Patient's Own Meds, SBP Hold Parameter: less than 110 mmHg, HR Hold Parameter: less than 55 bpm montelukast 2019-04 No 10 mg = 1 M emoria 06 tabs, Tab, l 03:00: Oral, qHS, first dose 02/16/20 21:00:00 PROTECTIVE OFFICER Clindamycin 2019-04 No 600 mg, Mem oria 06 Soln-IV, l 00:00: IV [place] Piggyback, q8hr, infuse over 30 minutes, order duration: 3 doses, first dose 02/16/20 18:00:00 PROTECTIVE OFFICER, stop date 02/17/20 17:59:00 PROTECTIVE OFFICER, Prophylaxi s insulin 2019-04 No 3 - 15 Memoria regular 1-05 units, l sliding 22:30: Injection, Herm shelley scale 00 Subcutaneo MEDIUM us, QIDACHS, first dose 02/16/20 16:30:00 PROTECTIVE OFFICER scopolamine 2019-04 No 1 patches, Memoria 1.5 mg 1-05 Film-ER, l transdermal 21:00: TD, q72hr, Yariel film, first dose extended 02/16/20 release 15:00:00 PROTECTIVE OFFICER NS 1,000 mL 2019-04 No 1,000 mL, M emoria 1-05 IV, 100 l 17:46: mL/hr, [place] start date 11/05/20 11:46:00 PROTECTIVE OFFICER, 2.82, m2 Saline Lock 2019-04 No 10 mL, Yovani tamica Flush 1-05 Soln, IV l 17:00: Push, Yariel 00 q8hr, first dose 02/16/20 11:00:00 PROTECTIVE OFFICER 72 HR 2019-04 No 1 patches, Memori a Scopolamine 1-05 Film-ER, l 0.0139 17:00: TD, q72hr, Kathryn nn MG/HR 00 first dose Transdermal 02/16/20 Patch 11:00:00 PROTECTIVE OFFICER Morphine 2019-04 Yes 4 mg = 2 Memor ia 1-05 mL, l 16:21: Injection, Yariel 00 IV Push, q4hr PRN for pain severe (7-10), first dose 02/16/20 10:21:00 PROTECTIVE OFFICER Zofran 2019-04 Yes 4 mg = 2 Memoria 1-05 mL, l 16:21: Injection, Yariel 00 IV Push, q6hr PRN for nausea/vom iting, first dose 02/16/20 10:21:00 PROTECTIVE OFFICER Acetaminoph 2019-04 Yes Notes: Max Memoria en 325 MG / 1-05 4gm l Hydrocodone 16:21: acetaminop [place] Bitartrate 00 hen in 24 5 MG Oral hours Tablet [[place] 5/325] NS 1,000 mL 2019-04 No 1,000 mL, M emoria 1-05 IV, 100 l 16:21: mL/hr, [place] 00 start date 02/16/20 10:21:00 PROTECTIVE OFFICER, 2.82, m2 Saline Lock 2019-04 No 10 mL, Yovani tamica Flush 1-05 Soln, IV l 16:19: Push, q8hr Yariel 00 PRN for flush, first dose 02/16/20 10:19:00 PROTECTIVE OFFICER Morphine 2019-04 Yes 2 mg = 1 Memor ia 1-05 mL, l 16:19: Injection, [place] 00 IV Push, q3hr PRN for pain, first dose 02/16/20 10:19:00 PROTECTIVE OFFICER Flu Shot PF 2019-04 No 0.5 mL, Mem oria 1-05 Injection, l 16:19: IM, Once [place] 00 PRN for other (see comment), first dose 02/16/20 10:19:00 PROTECTIVE OFFICER Zofran 2019-04 No 4 mg = 2 Memoria 1-05 mL, l 16:19: Injection, Yariel 00 IV Push, q6hr PRN for nausea/vom iting, first dose 02/16/20 10:19:00 PROTECTIVE OFFICER Phenergan 2019-04 No 25 mg = 1 Mem oria 1-05 mL, l 16:19: Injection, [place] 00 IM, q6hr PRN for nausea/vom iting, first dose 02/16/20 10:19:00 PROTECTIVE OFFICER Acetaminoph 2019-04 No Notes: Max Memoria en 1-05 4gm l 16:19: acetaminop [place] 00 hen in 24 hours Benadryl 2019-04 No 25 mg = Memori a 1-05 0.5 mL, l 16:19: Injection, Yariel 00 IV Push, q6hr PRN for itching, first dose 02/16/20 10:19:00 PROTECTIVE OFFICER Acetaminoph 2019-04 No Notes: Max Memoria en 21.7 1-05 4gm l MG/ML / 16:19: acetaminop Herm shelley Hydrocodone 00 hen in 24 Bitartrate hours 0.5 MG/ML Oral Solution Normal 2019-04 Yes 1,000 mL, Memori a Saline 1-05 IV, 100 l 1,000 mL 16:19: mL/hr, start date 02/16/20 10:19:00 PROTECTIVE OFFICER, 2.82, m2 Saline Lock 2019-04 No 10 mL, Yovani tamica Flush 1-05 Soln, IV l 16:18: Push, As Indicated PRN for flush, first dose 02/16/20 10:18:00 PROTECTIVE OFFICER Morphine 2019-04 No 2 mg = 1 Memor ia 1-05 mL, l 16:18: Injection, [place] 00 IV Push, q5min PRN for pain, first dose 02/16/20 10:18:00 PROTECTIVE OFFICER Dilaudid 2019-04 No 0.5 mg = Memor ia 1-05 0.5 mL, l 16:18: Injection, [place] 00 IV Push, q10min PRN for pain severe (7-10), first dose 02/16/20 10:18:00 PROTECTIVE OFFICER Demerol HCl 2019-04 No 12.5 mg = M emoria 1-05 0.5 mL, l 16:18: Injection, Yariel 00 IV Push, Once PRN for shivers, first dose 02/16/20 10:18:00 PROTECTIVE OFFICER Albuterol 2019-04 No 2.5 mg = 3 Me moria 0.83 MG/ML 1-05 mL, Soln, l Inhalant 16:18: NEB, Once Herm shelley Solution 00 PRN for wheezing, first dose 02/16/20 10:18:00 PROTECTIVE OFFICER Ondansetron 2019-04 No 4 mg = 2 Me moria 1-05 mL, l 16:18: Injection, [place] 00 IV Push, q15min PRN for nausea, order duration: 2 doses, first dose 02/16/20 10:18:00 PROTECTIVE OFFICER, stop date Limited # of times Promethazin 2019-04 No 12.5 mg = M emoria e 1-05 0.5 mL, l 16:18: Injection, Yariel 00 IM, Once PRN for vomiting, first dose 02/16/20 10:18:00 PROTECTIVE OFFICER Labetalol 2019-04 No 5 mg = 1 Yovani tamica 1-05 mL, l 16:18: Injection, [place] 00 IV Push, As Indicated PRN for hypertensi on, first dose 02/16/20 10:18:00 PROTECTIVE OFFICER, SBP Hold Parameter: less than 110 mmHg, HR Hold Parameter: less than 60 bpm Hydralazine 2019-04 No 5 mg = Yovani tamica 1-05 0.25 mL, l 16:18: Injection, [place] 00 IV Push, As Indicated PRN for hypertensi on, first dose 02/16/20 10:18:00 PROTECTIVE OFFICER, SBP Hold Parameter: less than 110 mmHg glycopyrron 2019-04 No 0.2 mg = 1 Memoria ium 1-05 mL, l 16:18: Injection, [place] 00 IV Push, Once PRN for bradycardi a, first dose 02/16/20 10:18:00 PROTECTIVE OFFICER Diphenhydra 2019-04 No 25 mg = Mem oria mine 1-05 0.5 mL, l 16:18: Injection, [place] 00 IV Push, Once PRN for itching, first dose 02/16/20 10:18:00 PROTECTIVE OFFICER Misc 2019-04 No 1,000 mL, Memoria Medication 1-05 Soln-IV, l 16:10: IV, Once, Yariel 00 first dose 02/16/20 10:10:00 PROTECTIVE OFFICER, stop date 02/16/20 10:10:00 PROTECTIVE OFFICER ketorolac 2019- No 30 mg = 1 Mem oria 1-05 mL, l 15:52: Injection, IV, Once, first dose 02/16/20 9:52:00 PROTECTIVE OFFICER, stop date 02/16/20 9:52:00 PROTECTIVE OFFICER ondansetron 2019- No 8 mg = 4 Me moria 1-05 mL, l 15:49: Injection, IV, Once, first dose 02/16/20 9:49:00 PROTECTIVE OFFICER, stop date 02/16/20 9:49:00 PROTECTIVE OFFICER HYDROmorpho 2019- No 1 mg = 0.5 Memoria ne 1-05 mL, l 15:49: Injection, IV, Once, first dose 02/16/20 9:49:00 PROTECTIVE OFFICER, stop date 02/16/20 9:49:00 PROTECTIVE OFFICER sugammadex 2019-04 No 400 mg = 4 M emoria 1-05 mL, l 15:45: Injection, IV, Once, first dose 02/16/20 9:45:00 PROTECTIVE OFFICER, stop date 02/16/20 9:45:00 PROTECTIVE OFFICER rocuronium 2019-04 No 20 mg = 2 Me moria 1-05 mL, l 15:27: Injection, IV, Once, first dose 02/16/20 9:27:00 PROTECTIVE OFFICER, stop date 02/16/20 9:27:00 PROTECTIVE OFFICER fentaNYL 2019- No 100 mcg = Yovani tamica 1-05 2 mL, l 15:06: Injection, IV, Once, first dose 02/16/20 9:06:00 PROTECTIVE OFFICER, stop date 02/16/20 9:06:00 PROTECTIVE OFFICER rocuronium 2019- No 50 mg = 5 Me moria 1-05 mL, l 15:06: Injection, IV, Once, first dose 02/16/20 9:06:00 PROTECTIVE OFFICER, stop date 02/16/20 9:06:00 PROTECTIVE OFFICER Misc 2019- No 1,000 mL, Memoria Medication 1-05 Soln-IV, l 15:06: IV, Once, first dose 02/16/20 9:06:00 PROTECTIVE OFFICER, stop date 02/16/20 9:06:00 PROTECTIVE OFFICER ePHEDrine 2019-04 No 10 mg = Memor ia 1-05 0.2 mL, l 15:00: Injection, IV, Once, first dose 02/16/20 9:00:00 PROTECTIVE OFFICER, stop date 02/16/20 9:00:00 PROTECTIVE OFFICER ePHEDrine 2019-04 No 10 mg = Memor ia 1-05 0.2 mL, l 14:54: Injection, IV, Once, first dose 02/16/20 8:54:00 PROTECTIVE OFFICER, stop date 02/16/20 8:54:00 PROTECTIVE OFFICER clindamycin 2019-04 No 900 mg, Mem oria 1-05 Soln-IV, l 14:36: IV, Once, first dose 02/16/20 8:36:00 PROTECTIVE OFFICER, stop date 02/16/20 8:36:00 PROTECTIVE OFFICER lidocaine 2019-04 No 100 mg = 5 Me moria 1-05 mL, l 14:25: Injection, IV, Once, first dose 02/16/20 8:25:00 PROTECTIVE OFFICER, stop date 02/16/20 8:25:00 PROTECTIVE OFFICER rocuronium 2019-04 No 10 mg = 1 Me moria 1-05 mL, l 14:25: Injection, IV, Once, first dose 02/16/20 8:25:00 PROTECTIVE OFFICER, stop date 02/16/20 8:25:00 PROTECTIVE OFFICER succinylcho 2019-04 No 180 mg = 9 Memoria line 1-05 mL, l 14:25: Injection, IV, Once, first dose 02/16/20 8:25:00 PROTECTIVE OFFICER, stop date 02/16/20 8:25:00 PROTECTIVE OFFICER propofol 2019-04 No 200 mg = Memor ia 1-05 20 mL, l 14:25: Emulsion, [place] 00 IV, Once, first dose 02/16/20 8:25:00 PROTECTIVE OFFICER, stop date 02/16/20 8:25:00 PROTECTIVE OFFICER fentaNYL 2019-04 No 150 mcg = Yovani tamica 1-05 3 mL, l 14:24: Injection, Yariel IV, Once, first dose 02/16/20 8:24:00 PROTECTIVE OFFICER, stop date 02/16/20 8:24:00 PROTECTIVE OFFICER midazolam 2019-04 No 2 mg = 2 Yovani tamica 1-05 mL, l 14:16: Injection, IV, Once, first dose 02/16/20 8:16:00 PROTECTIVE OFFICER, stop date 02/16/20 8:16:00 PROTECTIVE OFFICER HYDROmorpho 2019-04 No 1 mg = 0.5 Memoria ne 1-05 mL, l 14:16: Injection, IV, Once, first dose 02/16/20 8:16:00 PROTECTIVE OFFICER, stop date 02/16/20 8:16:00 PROTECTIVE OFFICER Clindamycin 2019-04 No 900 mg, Mem oria 1-05 Soln-IV, l 14:00: IV Piggyback, Once, infuse over 30 minutes, first dose 02/16/20 8:00:00 PROTECTIVE OFFICER, stop date 02/16/20 8:00:00 PROTECTIVE OFFICER, Prophylaxi s LR 1,000 mL 2019-04 No 1,000 mL, M emoria 1-05 IV, 30 l 13:41: mL/hr, start date 02/16/20 7:41:00 PROTECTIVE OFFICER, 2.82, m2 Lidocaine 2019-04 No 0.2 mL, Memor ia 2% 0.2 mL -05 Injection, l IV Start 13:41: [facility] us, Once PRN for other (see comment), first dose 02/16/20 7:41:00 PROTECTIVE OFFICER meloxicam 2019-04 Yes 15 mg = 1 Mem oria 15 MG Oral 0-28 tabs, l Tablet 16:47: Oral, Daily, # 30 tabs, 0 Refill(s), Gout montelukast 2019-04 Yes 10 mg = 1 M emoria 10 mg oral 0-28 tabs, l tablet 16:47: Oral, qPM, Kathryn nn 00 # 30 tabs, 0 Refill(s), allergies Metformin 2019-04 Yes 850 mg = 1 Me moria hydrochlori 0-28 tabs, l de 850 MG 16:47: Oral, BID, He rmann Oral Tablet 00 external rx states 1 tab bid, 0 Refill(s), DM Misc No 500 mL, Memoria Medication 7-30 Soln-IV, l 13:10: IV, Once, first dose 11/10/19 8:10:00 CDT, stop date 11/10/19 8:10:00 CDT propofol 2020-0 No 100 mg = Memor ia 7-30 10 mL, l 12:29: Emulsion, IV, Once, first dose 11/10/19 7:29:00 CDT, stop date 11/10/19 7:29:00 CDT LR 1,000 mL 2020-0 No 1,000 mL, M emoria 7-30 IV, 75 l 12:27: mL/hr, start date 11/10/19 7:27:00 CDT, 2.83, m2 Saline Lock 2020-0 No 10 mL, Yovani tamica Flush 7-30 Soln, IV l 12:27: Push, As Indicated PRN for flush, first dose 11/10/19 7:27:00 CDT propofol 2020-0 No 100 mg = Memor ia 7-30 10 mL, l 12:27: Emulsion, IV, Once, first dose 11/10/19 7:27:00 CDT, stop date 11/10/19 7:27:00 CDT propofol 2020-0 No 100 mg = Memor ia 7-30 10 mL, l 12:24: Emulsion, IV, Once, first dose 11/10/19 7:24:00 CDT, stop date 11/10/19 7:24:00 CDT lidocaine 2020-0 No 100 mg = 5 Me moria 7-30 mL, l 12:21: Injection, IV, Once, first dose 11/10/19 7:21:00 CDT, stop date 11/10/19 7:21:00 CDT propofol 2020-0 No 200 mg = Memor ia 7-30 20 mL, l 12:21: Emulsion, IV, Once, first dose 11/10/19 7:21:00 CDT, stop date 11/10/19 7:21:00 CDT midazolam 2020-0 No 2 mg = 2 Yovani tamica 7-30 mL, l 12:13: Injection, [place] 00 IV, Once, first dose 11/10/19 7:13:00 CDT, stop date 11/10/19 7:13:00 CDT glycopyrrol 2020-0 No 0.2 mg = 1 Memoria ate 7-30 mL, l 12:13: Injection, Yariel 00 IV, Once, first dose 11/10/19 7:13:00 CDT, stop date 11/10/19 7:13:00 CDT LR 1,000 mL 2020-0 No 1,000 mL, M emoria 7-30 IV, 30 l 11:07: mL/hr, [place] start date 11/10/19 6:07:00 CDT, 2.83, m2 Lidocaine 2019-0 No 0.2 mL, Memor ia 2% 0.2 mL 7-30 Injection, l IV Start 11:07: Subcutaneo Her faust [[facility]] 00 us, Once PRN for other (see comment), first dose 11/10/19 6:07:00 CDT carvedilol 2019-0 Yes 25 mg = 1 Me moria 25 MG Oral 7-28 tabs, l Tablet 18:02: Oral, BID, Kathryn nn 00 external says bid, 0 Refill(s), htn candesartan 2019- Yes 32 mg = 1 M emoria 32 mg oral 7-28 tabs, l tablet 18:02: Oral, [place] 00 Daily, 0 Refill(s), htn atorvastati 2019-0 Yes 40 mg = 1 M emoria n 40 mg 7-28 tabs, l oral tablet 18:02: Oral, Kathryn nn 00 Daily, 0 Refill(s), cholestero l 24 HR 0 No 1,500 mg = Memori a Metformin 7-28 2 tabs, l hydrochlori 18:02: Oral, Kathryn nn de 750 MG 00 Daily, 0 Extended Refill(s), Release dm Tablet Synera No Claribel 1 appl, Memoria 2- Iasbel Route: l 16:14: Matuszczak TOP, Dosing Weight 153, kg, ONCE, Start date: 05/19/12 10:14:00, Stop date: 05/19/12 10:14:00 Synera 2012-0 No Claribel 1 appl, Memoria 2- Isabel Route: l 16:13: Matuszczak TOP, [place] 00 Dosing Weight 153, kg, ONCE, Start date: 05/19/12 10:13:00, Stop date: 05/19/12 10:13:00 diphenhydrA 2012-0 No Yesika 12.5 mg, Memoria MINE 2-06 Jadyn 0.25 mL, l 14:42: Dais Route: Yariel IVP, Drug form: INJ, PRN, Dosing Weight 153, kg, PRN Itching, Start date: 05/19/12 8:42:00, Duration: 30 day, Stop date: 06/18/12 8:41:00 promethazin 2012- No Yesika 6.25 mg, Memoria e 2-06 Jadyn 0.25 mL, l 14:42: Dais Route: Yariel 00 IVPB, Drug form: INJ, ONCE, Dosing Weight 153, kg, PRN Nausea & Vomiting, Start date: 05/19/12 8:42:00 ondansetron 2012-0 No Yesika 4 mg, 2 Memoria 2-06 Jadyn mL, Route: l 14:42: Dais IVP, Drug form: INJ, ONCE, Dosing Weight 153, kg, PRN Nausea & Vomiting, Start date: 05/19/12 8:42:00 flumazenil 2012- No Yesika 0.2 mg, 2 Memoria 2-06 Jadyn mL, Route: l 14:42: Dais IVP, Drug form: INJ, PRN, Dosing Weight 153, kg, PRN Benzodiaze pine Reversal, Initial dose, Start date: 05/19/12 8:42:00, Duration: 30 day, Stop date: 06/18/12 8:41:00 meperidine 2012-0 No Yesika 12.5 mg, Memoria 2-06 Jadyn 0.25 mL, l 14:42: Dais Route: Yariel 00 IVP, Drug form: INJ, Q30Min, Dosing Weight 153, kg, PRN Other -See Comment, For shivering, Start date: 05/19/12 8:42:00, Duration: 2 doses or times, Stop date: 05/20/12 0:00:00 naloxone 2012-0 No Yesika 0.04 mg, M emoria 2-06 Jadyn 0.1 mL, l 14:42: Dais Route: [place] 00 IVP, Drug form: INJ, Q2MIN, Dosing Weight 153, kg, PRN Narcotic Reversal, Start date: 05/19/12 8:42:00, Duration: 8 doses or times, Stop date: 05/20/12 0:00:00 acetaminoph 2012- No Yesika 15 mL, Memoria en-hydrocod 2-06 Jadyn Route: PO, l one 325 14:42: Dais Drug Form: Herm shelley mg-10 mg/15 00 SOLN, mL oral Dosing solution Weight 153, kg, Q4H, PRN Pain Score 4-6, Start date: 05/19/12 8:42:00, Duration: 30 day, Stop date: 06/18/12 8:41:00 hydromorpho No Yesika 0.5 mg, Memoria ne 05-19 Jadyn 0.25 mL, l 14:42: Dais Route: [place] 00 IVP, Drug form: INJ, Q5Min, Dosing Weight 153, kg, PRN Pain Score 4-6, Start date: 05/19/12 8:42:00, Duration: 5 doses or times, Stop date: 05/20/12 0:00:00 Ancef No Evgeny 2 gm, Memoria 05-19 Harrison Route: l 13:38: IVP, ONCE, Dosing Weight 153, kg, Start date: 05/19/12 7:38:00, Stop date: 05/19/12 7:38:00 metFORmin Yes PO, QAM, Yovani tamica 05-17 Substituti l 19:13: on Allowed Versed 2011-04 No Melissa 20 mg, Memoria 05-10 Jerry Route: PO, l 20:42: Mukalel ONCE, Dosing Weight 146.5, kg, Start date: 03/10/12 14:42:00, Stop date: 03/10/12 14:42:00, Patient's Own Meds: No Active 2011-04 Yes No Active Mem oria Medications 05-03 Medication l 01:23: s [place] 30 Vicoprofen 2011-04 Yes Shitel 1 tab, PO, Memoria 7.5 mg-200 1- [place] Q4H, PRN, l mg oral 12:53: Snowden 60 tab, Shimon n tablet 02 for pain, Substituti on Allowed, Maintenanc e, TAB clindamycin 2011-04 Yes Shitel 300 mg, 1 Memoria 300 mg oral 08 [place] cap, PO, l capsule 12:52: [place] Q6H, 56 Shimon n 50 cap, Substituti on Allowed, CAP Peridex 2011-04 Yes Shitel 0.018 gm, Mem oria 0.12% 04-20 [place] 15 ml, PO, l topical 12:52: Snowden QID, 480 Kathryn nn liquid 26 ml, Substituti on Allowed, LIQ Cleocin HCl 2011-04 No Shitel 600 mg, 60 Memoria 04-20 [place] mL, Route: l 02:00: Snowden IVPB, Drug Shimon n 00 form: INJ, [id number], Start date: 02/18/12 20:00:00, Duration: 30 day, Stop date: 03/19/12 8:00:00 Peridex 2011-04 No Shitel 15 ml, Memori a 0.12% 04-19 [place] Route: l topical 23:00: Snowden S&SPIT, Shimon n liquid 00 QID, Drug form: LIQ, Start date: 02/18/12 17:00:00, Duration: 30 day, Stop date: 03/19/12 10:00:00 bacitracin 2011-04 No Evaristo Stanton 1 appl, M emoria topical 04-19 Anne Route: l 22:20: TOP, ONCE, [place] 00 Drug form: OINT, Start date: 02/18/12 16:20:00, Stop date: 02/18/12 16:20:00 [place] 325 2011-04 No Jason 15 mL, Memori a mg-10 mg / 04-19 Emerson Route: PO, l 15 mL oral 21:00: Henschel Drug Form: [place] solution 00 SOLN, Dosing Weight 149.6, kg, ONCE, PRN For Pain, Start date: 02/18/12 15:00:00 clindamycin 2011-04 No Shitel 600 mg, 4 Memoria 04-19 [place] mL, Route: l 21:00: Snowden IVPB, Drug Shimon n 00 form: INJ, [id number], Dosing Weight 149.6, kg, Start date: 02/18/12 15:00:00, Duration: 30 day, Stop date: 03/19/12 7:00:00 morphine 2011-04 No Jason 2 mg, Memoria Sulfate 04-19 [place] Route: l 21:00: Henschel IVP, ONCE, Her faust 00 Dosing Weight 149.6, kg, Start date: 02/18/12 15:00:00, Stop date: 02/18/12 15:00:00 morphine 2011-04 No Shitel 2 mg, 1 Yovani tamica Sulfate 04-19 [place] mL, Route: l 20:36: Snowden IVP, Drug [place] 00 form: INJ, Q2H, Dosing Weight 149.6, kg, PRN Breakthrou gh Pain, Start date: 02/18/12 14:36:00, Duration: 30 day, Stop date: 03/19/12 14:35:00 ondansetron 2011-04 No Shitel 4 mg, 2 M emoria 04-19 [place] mL, Route: l 20:24: Snowden IVP, Drug Yariel 00 form: INJ, Q6H, Dosing Weight 149.6, kg, PRN Nausea & Vomiting, Start date: 02/18/12 14:24:00, Duration: 30 day, Stop date: 03/19/12 14:23:00 [place] 325 2011-04 No Shitel 15 mL, Yovani tamica mg-10 mg / 04-19 [place] Route: PO, l 15 mL oral 20:23: Snowden Drug Form: [place] solution 00 SOLN, Dosing Weight 149.6, kg, Q4H, PRN For Pain, Start date: 02/18/12 14:23:00, Stop date: 03/19/12 14:22:00 Synera 2011-04 No Jasmin G 1 appl, Memori a 04-19 [place] Route: l 16:44: TOP, [place] 00 Dosing Weight 149.6, kg, ONCE, Start date: 02/18/12 10:44:00, Stop date: 02/18/12 10:44:00 Vital Signs Vital Name Observation Time Observation Value Comments Source Heart Rate 2020-02-17 17:15:00 [facility] Yariel Respitory Rate 2020-02-17 17:15:00 [facility] al Yariel Systolic (mm Hg) 2020-02-17 17:15:00 Yovani rial Yariel Diastolic (mm Hg) 2020-02-17 17:15:00 Mem o[facility] [place] Temperature Oral (F) 2020-02-17 17:15:00 36.7 [facility] [place] Temperature Oral (F) 2020-02-17 14:00:00 36.5 [facility] [place] Heart Rate 2020-02-17 14:00:00 [facility] [place] Respitory Rate 2020-02-17 14:00:00 [facility]ori al [place] Systolic (mm Hg) 2020-02-17 14:00:00 Yovani rial Yariel Diastolic (mm Hg) 2020-02-17 14:00:00 Mem o[facility] [place] Temperature Oral (F) 2020-02-17 10:00:00 36.8 [facility] [place] Heart Rate 2020-02-17 10:00:00 [facility] Respitory Rate 2020-02-17 10:00:00 [facility] Systolic (mm Hg) 2020-02-17 10:00:00 [facility]ani [facility] Diastolic (mm Hg) 2020-02-17 10:00:00 [facility] [place] Temperature Oral (F) 2020-02-16 16:00:00 36.9 [facility] Height 2020-02-16 13:49:00 193 cm [facility] Height 2020-02-08 16:46:00 193 cm [facility] Respitory Rate 2019-11-10 13:20:00 [facility] Respitory Rate 2019-11-10 13:00:00 [facility] [place] Systolic (mm Hg) 2019-11-10 13:00:00 [facility] Diastolic (mm Hg) 2019-11-10 13:00:00 [facility] [place] Respitory Rate 2019-11-10 12:50:00 [facility] Systolic (mm Hg) 2019-11-10 12:50:00 [facility] [place] Diastolic (mm Hg) 2019-11-10 12:50:00 [facility] [place] Temperature Oral (F) 2019-11-10 12:40:00 37 [facility] Systolic (mm Hg) 2019-11-10 12:40:00 [facility] Diastolic (mm Hg) 2019-11-10 12:40:00 [facility] Temperature Oral (F) 2019-11-10 11:08:00 36.6 [facility] Height 2019-11-10 11:08:00 193 cm [facility] Height 2019-11-08 18:00:00 193 cm [facility] Respitory Rate 2012-05-19 17:45:00 [facility] [place] Systolic (mm Hg) 2012-05-19 17:45:00 [facility] [place] Diastolic (mm Hg) 2012-05-19 17:45:00 [facility] Respitory Rate 2012-05-19 17:30:00 [facility] Systolic (mm Hg) 2012-05-19 17:30:00 [facility] [place] Diastolic (mm Hg) 2012-05-19 17:30:00 [facility] Diastolic (mm Hg) 2012-05-19 17:15:00 [facility] Respitory Rate 2012-05-19 17:15:00 [facility] [place] Systolic (mm Hg) 2012-05-19 17:15:00 [facility] [place] Heart Rate 2012-05-19 12:47:00 [facility] Weight 2012-05-19 12:27:00 [facility] Height 2012-05-19 12:27:00 191.00 cm [facility] Respitory Rate 2012-03-10 23:30:00 [facility] [place] Diastolic (mm Hg) 2012-03-10 23:30:00 [facility] [place] Systolic (mm Hg) 2012-03-10 23:30:00 [facility] Respitory Rate 2012-03-10 23:15:00 [facility] Respitory Rate 2012-03-10 23:00:00 [facility] Diastolic (mm Hg) 2012-03-10 23:00:00 [facility] Systolic (mm Hg) 2012-03-10 23:00:00 [facility] [place] Systolic (mm Hg) 2012-03-10 22:45:00 [facility] [place] Diastolic (mm Hg) 2012-03-10 22:45:00 [facility] [place] Weight 2012-03-10 19:02:00 [facility] Height 2012-03-10 19:02:00 192.00 cm [facility] Heart Rate 2012-03-10 18:36:00 [facility] Heart Rate 2012-02-19 11:44:00 [facility] Systolic (mm Hg) 2012-02-19 11:44:00 [facility] [place] Diastolic (mm Hg) 2012-02-19 11:44:00 [facility] [place] Respitory Rate 2012-02-19 11:44:00 [facility] [place] Systolic (mm Hg) 2012-02-19 06:45:00 [facility] [place] Heart Rate 2012-02-19 06:45:00 [facility] [place] Respitory Rate 2012-02-19 06:45:00 [facility] Diastolic (mm Hg) 2012-02-19 06:45:00 [facility] [place] Diastolic (mm Hg) 2012-02-19 02:30:00 [facility] [place] Temperature Oral (F) 2012-02-19 02:30:00 98.2 F [facility] Heart Rate 2012-02-19 02:30:00 [facility] Systolic (mm Hg) 2012-02-19 02:30:00 [facility] Respitory Rate 2012-02-19 02:30:00 [facility] Weight 2012-02-18 15:49:00 [facility] Height 2012-02-18 15:49:00 193.04 [facility] Procedures Procedure Date / Time Performing Source Performed Clinician GASTRECTOMY 2020-02-16 [facility] LAPAROSCOPIC-LONGITUDINAL 60366 15:06:00 (N/A)<sup>1</sup> ESOPHAGOGASTRODUODENOSCOPY 2019-11-10 [facility] W/BIOPSY 56350 (N/A)<sup>1</sup> 12:25:00 Fixation of mandible 2012-03-10 [facility] 06:00:00 Fixation of mandible 2012-03-10 [facility] 06:00:00 Arthroscopy of knee [facility] jaw surgery [facility] Plan of Care Planned Activity Planned Date Details Comments Source Future Scheduled Test 2012-03-03 01:23:30 Plan of Care [code [facility] = 33251-9] Future Scheduled Test 2012-03-02 02:29:05 Plan of Care [code [facility] = 90681-9] Future Scheduled Test 2012-02-23 18:41:57 Plan of Care [code [facility] = 91460-4] Encounters Start End Encounter Admission Attending Care Care Encounter Source Date/Time Date/Time Type Type Clinicians Facility Department ID 2020-02-16 2020-02-17 Outpatient [facility] [id number] 06:42:52 11:35:00 Mia Mcdaniel Wagner 2019-11-10 2019-11-10 Outpatient [facility] [id number] 9 1460 05:48:28 08:41:00 Mia Mcdaniel Wagner 2019-03-02 2019-03-02 Outpatient Physician, [id number]. [id number] . [id number] 13:27:00 23:59:00 Non [id number]. [id number] Associated 3.615.54 5.54 2018-11-22 2018-11-22 Office RENETTA Nichols [id number] 13:32:40 13:47:40 Visit [facility] [id number] Surgical [id number] Special [id number] [address] 2012-03-02 2012-03-02 Outpatient 3 3 [id number] 19:23:45 19:23:30 2012-03-01 2012-03-01 Outpatient 3 3 [id number] 20:29:20 20:29:05 2012-02-23 2012-02-23 Outpatient 3 3 [id number] 12:42:12 12:41:57 2012-02-16 2012-02-16 Outpatient 3 3 [id number] 16:14:45 16:14:30 2012-02-16 2012-02-16 Outpatient 3 3 [id number] 12:47:26 12:47:11 Results Test Description Test Time Test Comments Results Result Comments Source LABORATORY 2020-02-17 174 [facility] 12:24:00 LABORATORY 2020-02-17 77.9 [facility] 09:22:00 LABORATORY 2020-02-17 8.0 [facility] 09:22:00 LABORATORY 2020-02-17 13.4 [facility] nn 09:22:00 LABORATORY 2020-02-17 0.4 [facility] nn 09:22:00 LABORATORY 2020-02-17 0.3 [facility] nn 09:22:00 LABORATORY 2020-02-17 7.2 [facility] nn 09:22:00 LABORATORY 2020-02-17 1.2 [facility] nn 09:22:00 LABORATORY 2020-02-17 0.7 [facility] nn 09:22:00 LABORATORY 2020-02-17 9.3 [facility] nn 09:22:00 LABORATORY 2020-02-17 4.62 [facility] nn 09:22:00 LABORATORY 2020-02-17 14.1 [facility] nn 09:22:00 LABORATORY 2020-02-17 40.9 [facility] nn 09:22:00 LABORATORY 2020-02-17 88.5 [facility] nn 09:22:00 LABORATORY 2020-02-17 09:22:00 Test Item Value Reference Range Interpretation Comme nts MCH (test code = MCH) 30.6 pg 27.0-31.0 [facility] UshgmhcWEGMPYKKNS3548-62-63 09:22:[facility].6[facility] 2020-02-17 09:22:0013.0[facility] LjllmakVZUAKOGQKN5185-46-62 09:22:52887Adiupfta YzmqkkcWKWKHGHMJM4805-61-46 09:22:009.0[facility] SgeelkmSDSAUHWFQW8225-71-68 09:22:000.9[facility] OeneiqaSVFUCWAZKT1742-19-05 09:22:86868Mpsnbqam [place] WAOSUDOLZP1949-58-29 09:22:004.1[facility] NzyduvqJKKWYOVLYP5401-71-02 09:22:53580 [facility] GdvwldrPLTDWHDNHE2170-28-47 09:22:0029[facility] 2020-02-17 09:22:0011.1[facility] QykkhuiBNDGSOLWJI9573-76-79 09:22:73688Xdprtezh GcyzbrvMPEZWCCDCY5258-20-95 09:22:000.91[facility] LpgkrgkQNTTSNZEUI0188-40-59 09:22:0010[facility] QbcyxafHGOGXPNGVH9865-50-80 09:22:006.7[facility] VWMRZJUMGH1127-69-39 09:22:003.6[facility] QdaocquOYOTFUOIYJ1089-74-03 09:22:003.1 [facility] JgnjdftOZCEXEJSNL6499-07-04 09:22:00 Test Item Value Reference Range Interpretation Comments Alb/Glob Ratio (test code = Alb/Glob 1.2 1 0.7-1.6 Ratio) [facility] QipltxcZOWMCZLCZL6960-30-77 09:22:008.6[facility] 2020-02-17 09:22:0088[facility] VhryhclSANXUSVOKS0271-88-97 09:22:0040[facility] GubwpidNZHJJXSPIY8353-59-48 09:22:000.9[facility] QsabugtFUQQXYZZRN9180-16-03 09:22:0067[facility] ZwztyvuGOAZMUIJZP5538-18-15 09:22:09409Ypkppooe [place] LYVURKPZVU0747-70-42 03:25:31683Wvzdrvsa ZbmtmupLPFPWUTBNF3477-51-92 22:40:80365 [facility] XxuwiynRZXQWQJBQB0180-94-65 22:30:50688Frmyucws [facility]annLAB[facility]AT[facility] 2020-02-16 13:41:95920Krphujmx NrhfklpNJBTJRVTOP7980-94-21 11:39:82002Ucesfsvh JqrabwiNAMBNTRGQE0333-25-27 21:49:005.3[facility] EcqhvqyPYCBQIOGQW0693-31-56 21:49:000.4[facility] VbghvhuTJZWDZIUWB8506-58-65 21:49:004.1[facility] LHUNQCSRHE5474-42-78 21:49:0024.9[facility] BrtiyztIAHJVPLLKG7977-73-45 21:49:00 61.5[facility] EvesltaLFSPWQBICX0935-15-31 21:49:002.1[facility]annHEMATOLOGY 2012-03-10 21:49:009.1[facility] UnqwdztOKISBLELGA8306-09-41 21:49:000.4[facility] NkpnwseTFAOVVWOCT7029-74-85 21:49:000.8[facility] JwhgtwlSDFBFYAKAR6804-64-00 21:49:008.6[facility] PvcmwkxTWOKDYRCDF8633-97-35 21:49:004.67[facility] KHABTSDALR1923-29-61 21:49:0087.2[facility] RgqunwcDDELYJFCZE3628-14-01 21:49:00 40.7[facility] YqmqhrcHWJVIJLHAE7808-03-22 21:49:0034.3[facility]annHE[facility]Y 2012-03-10 21:49:00 Test Item Value Reference Range Interpretation Comments MCH (test code = MCH) 29.9 pg 27.0-31.0 [facility] YqgzludWLSITGNWAA0874-93-88 21:49:20541Fskqhfmm HermannHEMATOLOGY 2012-03-10 21:49:0012.7[facility] SrfgmdcUXHZBYBSSS9221-42-11 21:49:0013.9[facility] VebhzuyUBWJRGWQAM0852-80-41 21:49[facility] [place]
== END 2020-05-23 12:36 | disposition home or self-care (01) ==
LOC: ER 10:16
DX: M25.561 Pain in right knee (principal); R55 Syncope and collapse; E86.9 Volume depletion, unspecified; E11.9 Type 2 diabetes mellitus without complications; I10 Essential (primary) hypertension; E78.5 Hyperlipidemia, unspecified; M10.9 Gout, unspecified; Z79.84 Long term (current) use of oral hypoglycemic drugs; W19.XXXA Unspecified fall, initial encounter; Y92.009 Unspecified place in unspecified non-institutional (private) residence as the place of occurrence of the external cause
CPT/HCPCS: 85025; 80048; 36415; 81003; 73562; 96360; 99284; J7030